=== PATIENT | female | born 1935 | race Caucasian/White ===

== ENCOUNTER 2017-07-26 16:49 | Inpatient (IN) | payer MEDICARE, BC ==
[~2017-07-26] VITALS: Ht 162.6 cm; Wt 73.5 kg
[2017-07-26 17:23] VITALS: BP 193/113; PULSE 116; RESP 17; TEMP 99.5; O2SAT 97
[2017-07-26] MEDS ORDERED: DILT120T PO (18:15)
[2017-07-26] MEDS ORDERED: OCUVTAB4 PO (18:15)
[2017-07-26] MEDS ORDERED: LEVO88TA2 PO (18:15)
[2017-07-26] MEDS ORDERED: APIX5TAB PO (18:15)
[2017-07-26] MEDS ORDERED: FURO20TA PO (18:15)
[2017-07-26 18:20] VITALS: BP 190/97; PULSE 125; RESP 32; O2SAT 88
[2017-07-26] MEDS ORDERED: SODIUM CHLORIDE 0.9% FLUSH 10 ML FLUSH IVF PRN (18:30)
--- NOTE | 2017-07-26 18:38 | PD ---
HPI Chief Complaint: Respiratory Symptoms Time Seen by Provider: 18:28 Travel History International Travel<30 days: No Contact w/Intl Traveler<30days: No Traveled to known affect area: No History of Present Illness HPI 81-year-old female patient with history of hypertension, aortic valve replacement currently on blood thinners, Ulisses boyd, recent history of [employer] cancer status post hysterectomy in September, had lost her a few months ago, had a pneumonia 3 weeks ago and then today started having coughing, dyspnea on exertion according to her son. She has not been feeling well. She denies any chest pains, was nauseous today but denies any vomiting, diarrhea, or other issues. Modifying Factors: None Associated Signs & Symptoms: Coughing, dyspnea on exertion, not feeling well, nausea Risk Factors: Ulisses boyd, cardiac history PFSH Past Medical History Atrial Fibrillation: Yes Heart Rhythm Problems: Yes Cancer: Yes (GYNE CA) Congestive Heart Failure: Yes Diminished Hearing: No Immunizations Current: No Thyroid Disease: Yes Influenza Vaccination: No ?: Not Past Surgical History Cardiac Surgery: Yes (VALVE REPLACEMENT ) Gynecologic Surgery: Yes (HYSTERECTOMY ) Hysterectomy: Yes Social History Alcohol Use: No Tobacco Use: No (QUIT LONG TIME AGO ) Substance Use: No Allergies-Medications (Allergen,Severity, Reaction): Coded Allergies: Sulfa (Sulfonamide Antibiotics) (Verified Allergy, Intermediate, itchy, ) Penicillins (Verified Allergy, Unknown, 07/26/17) Reported Meds & Prescriptions Reported Meds & Active Scripts Active Reported Levothyroxine (Levothyroxine Sodium) 88 Mcg Tab 88 Mcg PO DAILY Furosemide 20 Mg Tab 20 Mg PO DAILY Preservision Areds (Multiple Vitamins W/ Minerals) 1 Tab 1 Tab PO DAILY Eliquis (Apixaban) 5 Mg Tab 5 Mg PO DAILY Diltiazem (Diltiazem HCl) 120 Mg Tab 120 Mg PO DAILY Review of Systems Except as stated in HPI: all other systems reviewed are Neg Physical Exam Narrative GENERAL: Well-developed elderly white female patient currently in mild respiratory distress. Awake and oriented 3. SKIN: Focused skin assessment warm/dry. HEAD: Atraumatic. Normocephalic. EYES: Pupils equal and round. No scleral icterus. No injection or drainage. ENT: No nasal bleeding or discharge. Mucous membranes pink and moist. NECK: Trachea midline. No JVD. CARDIOVASCULAR: Fast and irregularly irregular. RESPIRATORY: No accessory muscle use. Decreased breath sounds at the bases bilaterally. Breath sounds equal bilaterally. GASTROINTESTINAL: Abdomen soft, non-tender, nondistended. Hepatic and splenic margins not palpable. MUSCULOSKELETAL: No obvious deformities. No clubbing. No cyanosis. No edema. NEUROLOGICAL: Awake and alert. No obvious cranial nerve deficits. Motor grossly within normal limits. Normal speech. PSYCHIATRIC: Appropriate mood and affect; insight and judgment normal. Data Data Last Documented VS Vital Signs Date Time Temp Pulse Resp B/P (MAP) Pulse Ox O2 Delivery O2 Flow Rate FiO2 07/26/17 18:20 125 32 190/97 (128) 88 Room Air 07/26/17 18:20 2.00 07/26/17 17:23 99.5 Orders Orders Complete Blood Count With Diff (07/26/17 18:28) Comprehensive Metabolic Panel (07/26/17 18:28) B-Type Natriuretic Peptide (07/26/17 18:28) Ckmb (Isoenzyme) Profile (07/26/17 18:) Troponin I (07/26/17 18:28) Blood Culture (07/26/17 18:28) Iv Access Insert/Monitor (07/26/17 18:28) Electrocardiogram (07/26/17 18:28) Ecg Monitoring (07/26/17 18:) Oximetry (07/26/17 18:) Oxygen Administration (07/26/17 18:28) Chest, Single Ap (07/26/17 18:28) Sodium Chloride 0.9% Flush (Ns Flush) (07/26/17 18:30) Thyroid Stimulating Hormone (07/26/17 18:29) Diltiazem Inj (Cardizem Inj) (07/26/17 19:15) Sodium Chloride 0.9% Flush (Ns Flush) (07/26/17 19:15) MDM Medical Decision Making Medical Screen Exam Complete: Yes Emergency Medical Condition: Yes Medical Record Reviewed: Yes Interpretation(s) EKG shows A. fib with rapid ventricular response at 116 bpm. No signs of acute ST elevations or depressions. Differential Diagnosis Dyspnea on exertion, coughing, nausea: Dysrhythmias versus pneumonia versus CHF versus COPD exacerbation Narrative Course Patient was given Cardizem in the ER for A. fib with RVR. Lab work was initiated in the ER. Chest x-ray ordered for further evaluation. Physician Communication Physician Communication Case is signed out to Dr. Owens at 7 PM pending workup. Disposition based on workup. Diagnosis Primary Impression: Shortness of breath Additional Impression: Atrial fibrillation with RVR Admitting Information Admitting Physician Requests: Admit Renetta Vazquez MD Jul 26, 2017 18:38
--- NOTE | 2017-07-26 19:11 | RADRPT ---
EXAM DATE/TIME: 07/26/2017 18:44 [facility] COMPARISON: No previous studies available for comparison. INDICATIONS : Short of breath. MEDICAL HISTORY : None. SURGICAL HISTORY : None. ENCOUNTER: Initial ACUITY: 1 day PAIN SCORE: 0/10 LOCATION: Bilateral chest FINDINGS: A single view of the chest demonstrates the lungs to be symmetrically aerated without evidence of mas s, infiltrate or effusion. The cardiomediastinal contours are unremarkable. Osseous structures are intact. Patient has had previous median sternotomy. CONCLUSION: No evidence of acute cardiopulmonary disease. Bryant Steele MD on July 26, 2017 at 19:09 Board Certified Radiologist. This report was verified electronically.
[2017-07-26] MEDS ORDERED: DILTIAZEM HCL 25 MG/5 ML VIAL IV PUSH ONE (19:15)
[2017-07-26] MEDS ORDERED: SODIUM CHLORIDE 0.9% FLUSH 10 ML FLUSH IV FLUSH PRN (19:15)
[2017-07-26] MEDS ORDERED: DILTIAZEM HCL 50 MG/10 ML VIAL IV PUSH ONE (19:45)
[2017-07-26 19:51] LABS: AUTOMATED NEUTROPHIL # 9.2 TH/MM3 (1.8-7.7); BASOPHIL # 0.1 TH/MM3 (0-0.2); BASOPHIL % 0.6 % (0.0-2.0); EOSINOPHIL # 0.1 TH/MM3 (0-0.4); EOSINOPHIL % 0.5 % (0.0-4.0); HEMATOCRIT 43.7 % (35.0-46.0); HEMOGLOBIN 14.6 GM/DL (11.6-15.3); LYMPH % 11.1 % (9.0-44.0); LYMPHOCYTE # 1.3 TH/MM3 (1.0-4.8); MEAN CORPUSCULAR HEMOGLOBIN 31.2 PG (27.0-34.0); MEAN CORPUSCULAR HGB CONC 33.5 % (32.0-36.0); MEAN PLATELET VOLUME 7.8 FL (7.0-11.0); MONO % 6.1 % (0.0-8.0); MONOCYTE # 0.7 TH/MM3 (0-0.9); NEUT % 81.7 % (16.0-70.0); PLATELET COUNT 178 TH/MM3 (150-450); RED BLOOD COUNT 4.69 MIL/MM3 (4.00-5.30); RED CELL DISTRIBUTION WIDTH 14.3 % (11.6-17.2); WHITE BLOOD COUNT 11.3 TH/MM3 (4.0-11.0)
[2017-07-26] MEDS ORDERED: RESP: IPRATROPIUM 0.5 MG/2.5 ML NEB NEB ONE (20:00)
[2017-07-26] MEDS ORDERED: guaiFENesin/CODEINE SYRUP 200 MG/20 MG/10 ML CUP PO ONE (20:00)
[2017-07-26 20:23] LABS: AST (GOT) 26 U/L (15-37); BICARBONATE 29.1 MEQ/L (21.0-32.0); BLOOD UREA NITROGEN 18 MG/DL (7-18); CALCIUM 9.3 MG/DL (8.5-10.1); CHLORIDE 101 MEQ/L (98-107); CREATININE 0.96 MG/DL (0.50-1.00); GLOMERULAR FILTRATION RATE 56 ML/MIN (>89); GLUCOSE,RANDOM 97 MG/DL (74-106); SODIUM (NA) 137 MEQ/L (136-145)
[2017-07-26 20:24] LABS: ALT (GPT) 36 U/L (10-53)
[2017-07-26] MEDS: DILTIAZEM INJ 125 MG in SODIUM CHLORIDE 0.9% INJ 100 ML IV PRN (20:28)
[2017-07-26 20:34] LABS: ALKALINE PHOSPHATASE 91 U/L (45-117); TOTAL BILIRUBIN ADULT 0.9 MG/DL (0.2-1.0); TOTAL PROTEIN 8.2 GM/DL (6.4-8.2); TROPONIN I LESS THAN 0.02 NG/ML (0.02-0.05)
[2017-07-26 21:25] VITALS: BP 125/62; PULSE 113; RESP 20; O2SAT 97
[2017-07-26 22:07] VITALS: BP 126/67; PULSE 109; RESP 22; O2SAT 96
[2017-07-26 23:28] VITALS: BP 136/63; PULSE 93; RESP 18; O2SAT 96
[2017-07-27] VITALS (19 sets, daily range): BP systolic 94–140; BP diastolic 54–83; PULSE 13–111; RESP 16–20; TEMP 98.3–99; O2SAT 92–98
[2017-07-27] MEDS ORDERED: ONDANSETRON HCL 4 MG/2 ML VIAL IVP PRN (02:30)
[2017-07-27] MEDS ORDERED: NALOXONE HCL 0.4 MG/ML AMP IV PUSH PRN (02:30)
[2017-07-27] MEDS: RESP: IPRATROPIUM 0.5 MG/2.5 ML NEB NEB SCH ×4 (02:58→20:09)
--- NOTE | 2017-07-27 04:20 | HHI.HP ---
HPI Service [facility] Primary Care Physician Natalie Marshall MD Admission Diagnosis afib RVR Diagnoses: Travel History International Travel<30 Days: No Contact w/Intl Traveler <30 Da: No Traveled to Known Affected Are: No History of Present Illness 81-year-old female with a past medical history significant for atrial fibrillation (anticoagulated on Eliquis) and hypothyroidism sense to the emergency department for evaluation of cough. The patient reports that the cough started last night, is nonproductive and is preventing her from sleeping. She endorses an associated chest pain that is worse with the cough. She denies any fevers but endorses associated chills. No shortness of breath. No nausea/vomiting/diarrhea. On arrival to the emergency department the patient was found to be in atrial fibrillation with rapid ventricular response. She states this has occurred in the past. Review of Systems Except as stated in HPI: all other systems reviewed are Neg Past Family Social History Past Medical History Atrial fibrillation (anticoagulated on Eliquis) Hypothyroidism Unspecified gynecologic cancer Past Surgical History Hysterectomy Partial thyroidectomy Aortic valve replacement Tonsillectomy Reported Medications Reported Meds & Active Scripts Active Reported Levothyroxine (Levothyroxine Sodium) 88 Mcg Tab 88 Mcg PO DAILY Furosemide 20 Mg Tab 20 Mg PO DAILY Preservision Areds (Multiple Vitamins W/ Minerals) 1 Tab 1 Tab PO DAILY Eliquis (Apixaban) 5 Mg Tab 5 Mg PO DAILY Diltiazem (Diltiazem HCl) 120 Mg Tab 120 Mg PO DAILY Allergies: Coded Allergies: Sulfa (Sulfonamide Antibiotics) (Verified Allergy, Intermediate, itchy, ) Penicillins (Verified Allergy, Unknown, 07/26/17) Family History Negative for CAD/DM Social History Denies alcohol, tobacco and illicit drugs Physical Exam Vital Signs Vital Signs Date Time Temp Pulse Resp B/P (MAP) Pulse Ox O2 Delivery O2 Flow Rate FiO2 07/27/17 03:00 83 18 116/83 (94) 96 Nasal Cannula 2.00 07/27/17 01:00 90 18 140/66 (90) 96 Nasal Cannula 2.00 07/26/17 23:28 93 18 136/63 (87) 96 Nasal Cannula 2.00 07/26/17 22:07 109 22 126/67 (86) 96 2.00 07/26/17 21:25 113 20 125/62 (83) 97 2.00 07/26/17 20:46 Nasal Cannula 2.00 07/26/17 20:28 110 149/68 07/26/17 18:20 125 32 190/97 (128) 88 Room Air 07/26/17 18:20 88 Nasal Cannula 2.00 07/26/17 18:20 95 Nasal Cannula 2.00 07/26/17 17:23 99.5 116 17 193/113 (139) 97 Physical Exam GENERAL: female sitting up in bed SKIN: No rashes, ecchymoses or lesions. Cool and dry. HEAD: Atraumatic. Normocephalic. No temporal or scalp tenderness. EYES: Pupils equal round and reactive. Extraocular motions intact. No scleral icterus. No injection or drainage. ENT: Nose without bleeding, purulent drainage or septal hematoma. Throat without erythema, tonsillar hypertrophy or exudate. Uvula midline. Airway patent. NECK: Trachea midline. No JVD or lymphadenopathy. Supple, nontender, no meningeal signs. CARDIOVASCULAR: Irregularly irregular rhythm without murmurs/rubs/gallops RESPIRATORY: Expiratory wheezes, left greater than right. GASTROINTESTINAL: Abdomen soft, non-tender, nondistended. No hepato-splenomegaly , or palpable masses. No guarding. MUSCULOSKELETAL: Extremities without clubbing, cyanosis, or edema. No joint tenderness, effusion, or edema noted. No calf tenderness. NEUROLOGICAL: Awake and alert. Cranial nerves II through XII intact. Motor and sensory grossly within normal limits. Normal speech. Laboratory Laboratory Tests Test 07/26/17 18:20 White Blood Count 11.3 Red Blood Count 4.69 Hemoglobin 14.6 Hematocrit 43.7 Mean Corpuscular Volume 93.0 Mean Corpuscular Hemoglobin 31.2 Mean Corpuscular Hemoglobin Concent 33.5 Red Cell Distribution Width 14.3 Platelet Count 178 Mean Platelet Volume 7.8 Neutrophils (%) (Auto) 81.7 Lymphocytes (%) (Auto) 11.1 Monocytes (%) (Auto) 6.1 Eosinophils (%) (Auto) 0.5 Basophils (%) (Auto) 0.6 Neutrophils # (Auto) 9.2 Lymphocytes # (Auto) 1.3 Monocytes # (Auto) 0.7 Eosinophils # (Auto) 0.1 Basophils # (Auto) 0.1 CBC Comment DIFF FINAL Differential Comment Blood Urea Nitrogen 18 Creatinine 0.96 Random Glucose 97 Total Protein 8.2 Albumin 4.0 Calcium Level 9.3 Alkaline Phosphatase 91 Aspartate Amino Transf (AST/SGOT) 26 Alanine Aminotransferase (ALT/SGPT) 36 Total Bilirubin 0.9 Sodium Level 137 Potassium Level 3.7 Chloride Level 101 Carbon Dioxide Level 29.1 Anion Gap 7 Estimat Glomerular Filtration Rate 56 Total Creatine Kinase 69 Troponin I LESS THAN 0.02 B-Type Natriuretic Peptide 111 Thyroid Stimulating Hormone 3rd Gen 1.110 Date/Time Source Procedure Growth Status 07/26/17 18:35 Blood Peripheral Aerobic Blood Culture Pending Received 07/26/17 18:35 Blood Peripheral Anaerobic Blood Culture Pending Received Result Diagram: 07/26/17181907/26/170 Caprini VTE Risk Assessment Caprini VTE Risk Assessment: Mod/High Risk (score >= 2) Caprini Risk Assessment Model Point Value = 1 Point Value = 2 Point Value = 3 Point Value = 5 Age 41-60 Minor surgery BMI > 25 kg/m2 Swollen legs Varicose veins or History of unexplained or recurrent spontaneous Oral contraceptives or hormone replacement Sepsis (< 1 month) Serious lung disease, including pneumonia (< 1 month) Abnormal pulmonary function Acute myocardial infarction Congestive heart failure (< 1 month) History of inflammatory bowel disease Medical patient at bed rest Age 61-74 Arthroscopic surgery Major open surgery (> 45 min) Laparoscopic surgery (> 45 min) Malignancy Confined to bed (> 72 hours) Immobilizing plaster cast Central venous access Age >= 75 History of VTE Family history of VTE Factor V Leiden Prothrombin [id number] Lupus anticoagulant Anticardiolipin antibodies Elevated serum homocysteine Heparin-induced thrombocytopenia Other congenital or acquired thrombophilia Stroke (< 1 month) Elective arthroplasty Hip, pelvis, or leg fracture Acute spinal cord injury (< 1 month) Prophylaxis Regimen Total Risk Factor Score Risk Level Prophylaxis Regimen 0-1 Low Early ambulation 2 Moderate Order ONE of the following: *Sequential Compression Device (SCD) *Heparin 5000 units SQ BID 3-4 Higher Order ONE of the following medications: *Heparin 5000 units SQ TID *Enoxaparin/Lovenox 40 mg SQ daily (WT < 150 kg, CrCl > 30 mL/min) *Enoxaparin/Lovenox 30 mg SQ daily (WT < 150 kg, CrCl > 10-29 mL/min) *Enoxaparin/Lovenox 30 mg SQ BID (WT < 150 kg, CrCl > 30 mL/min) AND/OR *Sequential Compression Device (SCD) 5 or more Highest Order ONE of the following medications: *Heparin 5000 units SQ TID (Preferred with Epidurals) *Enoxaparin/Lovenox 40 mg SQ daily (WT < 150 kg, CrCl > 30 mL/min) *Enoxaparin/Lovenox 30 mg SQ daily (WT < 150 kg, CrCl > 10-29 mL/min) *Enoxaparin/Lovenox 30 mg SQ BID (WT < 150 kg, CrCl > 30 mL/min) AND *Sequential Compression Device (SCD) Assessment and Plan Assessment and Plan Assessment/plan: 1. Atrial fibrillation with rapid ventricular response EKG significant for A. fib with RVR, pulse 116, without ST segment elevations or depressions, personally reviewed Diltiazem drip, wean as tolerated Continue Eliquis and by mouth diltiazem 2. Cough/wheeze/mild leukocytosis DuoNeb's Flu pending Chest x-ray negative for acute process, personally reviewed 3. Hypothyroidism Continue home Synthroid FEN Heart healthy diet Electrolytes: Monitor and replete when necessary Eliquis Physician Certification 2 Midnight Certification Type: Admission for Inpatient Services Order for Inpatient Services The services are ordered in accordance with Medicare regulations or non- Medicare payer requirements, as applicable. In the case of services not specified as inpatient-only, they are appropriately provided as inpatient services in accordance with the 2-midnight benchmark. Estimated LOS (days): 2 2 days is the estimated time the patient will need to remain in the hospital, assuming treatment plan goals are met and no additional complications. Post-Hospital Plan: Not yet determined Danielle Alonzo MD Jul 27, 2017 04:20
[2017-07-27] MEDS: DILTIAZEM INJ 125 MG in SODIUM CHLORIDE 0.9% INJ 100 ML IV PRN (04:40)
[2017-07-27] MEDS: FUROSEMIDE 20 MG TAB PO SCH (09:32)
[2017-07-27] MEDS: DILTIAZEM-CD 120 MG CAP ER PO SCH (09:32)
[2017-07-27] MEDS: APIXABAN 5 MG TABLET PO SCH (09:32)
[2017-07-27] MEDS: LEVOTHYROXINE SODIUM 88 MCG TAB PO SCH (09:32)
[2017-07-27] MEDS: guaiFENesin E.R. 600 MG TAB PO SCH ×2 (09:33→21:23)
[2017-07-27] MEDS: guaiFENesin/CODEINE SYRUP 200 MG/20 MG/10 ML CUP PO PRN ×2 (09:33→22:44)
--- NOTE | 2017-07-27 14:36 | EKG ---
Date Performed: 07/26/2017 Time Performed: 18:18:51 PTAGE: 81 years EKG: ATRIAL FIBRILLATION WITH RAPID VENTRICULAR RESPONSE ST DEVIATION AND MODERATE T-WAVE ABNORM ALITY, CONSIDER INFERIOR ISCHEMIA ABNORMAL ECG NO PREVIOUS TRACING Clinical correlation is recommended. DOCTOR: Dm Beaver Interpretating Date/Time 07/27/2017 14:35:12
--- NOTE | 2017-07-27 17:31 | HHI.PR ---
Subjective Remarks This is a pleasant 81 y/o female admitted today with Atrial Fibrillation anticoagulated on Eliquis, has Hypothyroidism, came to ER with cough, found to be in atrial fibrillation with rapid ventricular response. Was admitted today and discussed with nurse, patient stable asked for informatics nurse specialist. no other changes. asked for Echocardiogram, Urinalysis, complete laboratory, TSH, free T4, Lipid profile, Hemoglobin A1C. tomorrow will be followed by another hospitalist. Objective Vital Signs Date Time Temp Pulse Resp B/P (MAP) Pulse Ox O2 Delivery O2 Flow Rate FiO2 07/27/17 17:28 84 07/27/17 16:03 103 07/27/17 15:07 84 07/27/17 15:07 99.0 103 20 126/65 (85) 94 07/27/17 12:00 98.3 79 16 94/58 (70) 96 07/27/17 12:00 79 07/27/17 10:50 98 Nasal Cannula 3.00 07/27/17 10:22 81 17 138/63 (88) 94 07/27/17 08:00 73 07/27/17 08:00 98.3 80 18 121/58 (79) 92 07/27/17 07:27 76 18 104/54 (71) Room Air 07/27/17 05:33 77 16 105/58 (74) 95 2.00 07/27/17 04:40 90 110/72 07/27/17 03:00 83 18 116/83 (94) 96 Nasal Cannula 2.00 07/27/17 01:00 90 18 140/66 (90) 96 Nasal Cannula 2.00 07/26/17 23:28 93 18 136/63 (87) 96 Nasal Cannula 2.00 07/26/17 22:07 109 22 126/67 (86) 96 2.00 07/26/17 21:25 113 20 125/62 (83) 97 2.00 07/26/17 20:46 Nasal Cannula 2.00 07/26/17 20:28 110 149/68 07/26/17 18:20 125 32 190/97 (128) 88 Room Air 07/26/17 18:20 88 Nasal Cannula 2.00 07/26/17 18:20 95 Nasal Cannula 2.00 I/O 07/26/17 07/26/17 07/26/17 07/27/1718 3/16/18 07:00 15:00 23:00 07:00 15:00 23:00 Intake Total 0 ml Output Total 0 ml Balance 0 ml Intake Oral 0 ml Output Urine Total 0 ml Result Diagram: 07/26/17181907/26/171819 Imaging Last Impressions Chest X-Ray 07/26/178 Signed Impressions: Service Date/Time: July 18:44 - CONCLUSION: No evidence of acute cardiopulmonary disease. Bryant Steele MD Procedures None Other Results Laboratory Tests Test 07/26/17 18:20 White Blood Count 11.3 TH/MM3 Red Blood Count 4.69 MIL/MM3 Hemoglobin 14.6 GM/DL Hematocrit 43.7 % Mean Corpuscular Volume 93.0 FL Mean Corpuscular Hemoglobin 31.2 PG Mean Corpuscular Hemoglobin Concent 33.5 % Red Cell Distribution Width 14.3 % Platelet Count 178 TH/MM3 Mean Platelet Volume 7.8 FL Neutrophils (%) (Auto) 81.7 % Lymphocytes (%) (Auto) 11.1 % Monocytes (%) (Auto) 6.1 % Eosinophils (%) (Auto) 0.5 % Basophils (%) (Auto) 0.6 % Neutrophils # (Auto) 9.2 TH/MM3 Lymphocytes # (Auto) 1.3 TH/MM3 Monocytes # (Auto) 0.7 TH/MM3 Eosinophils # (Auto) 0.1 TH/MM3 Basophils # (Auto) 0.1 TH/MM3 CBC Comment DIFF FINAL Differential Comment Blood Urea Nitrogen 18 MG/DL Creatinine 0.96 MG/DL Random Glucose 97 MG/DL Total Protein 8.2 GM/DL Albumin 4.0 GM/DL Calcium Level 9.3 MG/DL Alkaline Phosphatase 91 U/L Aspartate Amino Transf (AST/SGOT) 26 U/L Alanine Aminotransferase (ALT/SGPT) 36 U/L Total Bilirubin 0.9 MG/DL Sodium Level 137 MEQ/L Potassium Level 3.7 MEQ/L Chloride Level 101 MEQ/L Carbon Dioxide Level 29.1 MEQ/L Anion Gap 7 MEQ/L Estimat Glomerular Filtration Rate 56 ML/MIN Total Creatine Kinase 69 U/L Troponin I LESS THAN 0.02 NG/ML B-Type Natriuretic Peptide 111 PG/ML Thyroid Stimulating Hormone 3rd Gen 1.110 uIU/ML Objective Remarks GENERAL: female sitting up in bed SKIN: No rashes, ecchymoses or lesions. Cool and dry. HEAD: Atraumatic. Normocephalic. No temporal or scalp tenderness. EYES: Pupils equal round and reactive. Extraocular motions intact. No scleral icterus. No injection or drainage. ENT: Nose without bleeding, purulent drainage or septal hematoma. Throat without erythema, tonsillar hypertrophy or exudate. Uvula midline. Airway patent. NECK: Trachea midline. No JVD or lymphadenopathy. Supple, nontender, no meningeal signs. CARDIOVASCULAR: Irregularly irregular rhythm without murmurs/rubs/gallops RESPIRATORY: Expiratory wheezes, left greater than right. GASTROINTESTINAL: Abdomen soft, non-tender, nondistended. No hepato-splenomegaly , or palpable masses. No guarding. MUSCULOSKELETAL: Extremities without clubbing, cyanosis, or edema. No joint tenderness, effusion, or edema noted. No calf tenderness. NEUROLOGICAL: Awake and alert. Cranial nerves II through XII intact. Motor and sensory grossly within normal limits. Normal speech. Medications and IVs Current Medications Medications (Trade) Dose Ordered Sig/Nida Route Start Time Stop Time Status Last Admin (NS Flush) 2 ml UNSCH PRN IVF 07/26/17 18:30 07/26/17 19:38 (NS Flush) 2 ml UNSCH PRN IV FLUSH 07/26/17 19:15 Diltiazem HCl 125 mg/Sodium Chloride 125 ml @ 5 mls/hr TITRATE PRN IV 07/26/17 20:00 07/27/17 04:40 (Zofran Inj) 4 mg Q6H PRN IVP 07/27/17 02:30 (Narcan Inj) 0.4 mg UNSCH PRN IV PUSH 07/27/17 02:30 (Atrovent Neb) 0.5 mg Q6HR NEB NEB 07/27/17 04:00 07/27/17 16:19 (Eliquis) 5 mg DAILY PO 07/27/17 09:00 07/27/17 09:32 (Lasix) 20 mg DAILY PO 07/27/17 09:00 07/27/17 09:32 (Synthroid) 88 mcg DAILY@0600 PO 07/27/17 09:00 07/27/17 09:32 (Cardizem Cd) 120 mg DAILY PO 07/27/17 09:00 07/27/17 09:32 (Mucinex Er) 600 mg BID PO 07/27/17 09:00 07/27/17 09:33 (Robitussin Ac 200-20 Mg/10 ml Liq) 10 ml Q4H PRN PO 07/27/17 03:00 07/27/17 09:33 A/P Assessment and Plan 1. Atrial fibrillation with rapid ventricular response EKG significant for A. fib with RVR, pulse 116, without ST segment elevations or depressions, continue Diltiazem IV consult Cardiology, get Urinalysis, TSH, Free T4, Lipid profile, hemoglobin A1C , Echocardiogram, Eliquis. Cardizem by mouth. 2. Cough/wheeze/mild leukocytosis DuoNeb's Flu pending Chest x-ray negative for acute process 3. Hypothyroidism Continue home Synthroid FEN Heart healthy diet Electrolytes: Monitor and replete when necessary Eliquis Discharge Planning Admitted today awaiting for informatics nurse specialist consult. Herbert Carranza MD Jul 27, 2017 17:31
[2017-07-28] VITALS (29 sets, daily range): BP systolic 97–141; BP diastolic 54–71; PULSE 88–118; RESP 18; TEMP 98.1–98.9; O2SAT 92–97
[2017-07-28] MEDS: RESP: IPRATROPIUM 0.5 MG/2.5 ML NEB NEB SCH ×4 (03:15→21:22)
[2017-07-28 04:15] LABS: BACTERIA, URINE MANY /hpf; BILIRUBIN, URINE NEG (NEG); BLOOD, URINE MOD (NEG); GLUCOSE,URINE NEG (NEG); KETONE, URINE NEG (NEG); MUCUS URINE MOD /lpf (OCC); NITRITE,URINE NEG (NEG); SQUAMOUS EPITHELIAL CELL URINE 7 /hpf (0-5); TRANSITIONAL EPI CELLS, URINE 2 /hpf; URINE COLOR YELLOW (YELLW/STRAW); URINE LEUKOCYTE ESTERASE LARGE (NEG); WHITE BLOOD CELL CLUMPS OCC
[2017-07-28] MEDS: LEVOTHYROXINE SODIUM 88 MCG TAB PO SCH (06:38)
[2017-07-28 07:13] LABS: AUTOMATED NEUTROPHIL # 8.7 TH/MM3 (1.8-7.7); BASOPHIL % 0.5 % (0.0-2.0); EOSINOPHIL # 0.1 TH/MM3 (0-0.4); EOSINOPHIL % 0.9 % (0.0-4.0); HEMATOCRIT 32.7 % (35.0-46.0); HEMOGLOBIN 11.3 GM/DL (11.6-15.3); LYMPH % 6.3 % (9.0-44.0); LYMPHOCYTE # 0.6 TH/MM3 (1.0-4.8); MEAN CELL VOLUME 92.2 FL (80.0-100.0); MEAN CORPUSCULAR HEMOGLOBIN 31.7 PG (27.0-34.0); MEAN CORPUSCULAR HGB CONC 34.4 % (32.0-36.0); MEAN PLATELET VOLUME 7.6 FL (7.0-11.0); MONO % 7.9 % (0.0-8.0); MONOCYTE # 0.8 TH/MM3 (0-0.9); NEUT % 84.4 % (16.0-70.0); PLATELET COUNT 153 TH/MM3 (150-450); RED BLOOD COUNT 3.55 MIL/MM3 (4.00-5.30); RED CELL DISTRIBUTION WIDTH 14.3 % (11.6-17.2); WHITE BLOOD COUNT 10.3 TH/MM3 (4.0-11.0)
[2017-07-28 08:20] LABS: BICARBONATE 28.7 MEQ/L (21.0-32.0); CALCIUM 8.3 MG/DL (8.5-10.1); CHOLESTEROL/ HDL RATIO 2.1 RATIO; CREATININE 0.84 MG/DL (0.50-1.00); FOLATE 11.1 NG/ML (3.1-17.5); HDL CHOLESTEROL 83.3 MG/DL (40.0-60.0)
[2017-07-28] MEDS: APIXABAN 5 MG TABLET PO SCH (08:53)
[2017-07-28] MEDS: guaiFENesin E.R. 600 MG TAB PO SCH ×2 (08:53→21:18)
[2017-07-28] MEDS: FUROSEMIDE 20 MG TAB PO SCH (08:53)
[2017-07-28] MEDS: DILTIAZEM-CD 120 MG CAP ER PO SCH (08:53)
[2017-07-28] MEDS: guaiFENesin/CODEINE SYRUP 200 MG/20 MG/10 ML CUP PO PRN ×2 (08:53→21:18)
[2017-07-28] MEDS ORDERED: APIX5TAB PO (08:57)
--- NOTE | 2017-07-28 15:09 | HHI.PR ---
Subjective Remarks Follow-up atrial fibrillation with RVR 07/28/17-patient seen and examined, currently rate controlled, denies any chest or shortness of breath. UA abnormal Objective Vitals Vital Signs Date Time Temp Pulse Resp B/P (MAP) Pulse Ox O2 Delivery O2 Flow Rate FiO2 07/28/17 14:00 92 07/28/17 13:00 96 07/28/17 12:03 103 07/28/17 11:06 98.1 101 18 97/54 (68) 95 07/28/17 11:00 94 07/28/17 10:00 102 07/28/17 09:00 116 07/28/17 08:35 92 21 07/28/17 08:00 96 07/28/17 07:53 98.3 98 18 105/60 (75) 96 07/28/17 07:00 94 07/28/17 06:00 102 07/28/17 05:00 100 07/28/17 04:00 98.6 98 18 122/71 (88) 95 07/28/17 04:00 98 07/28/17 03:00 96 07/28/17 02:00 92 07/28/17 01:00 96 07/28/17 00:00 94 07/28/17 00:00 98.9 98 18 136/68 (90) 96 07/27/17 23:00 96 07/27/17 22:00 100 07/27/17 21:26 98.9 111 18 128/68 (88) 95 07/27/17 21:00 102 07/27/17 20:09 95 Nasal Cannula 3.00 07/27/17 20:00 96 07/27/17 19:00 95 07/27/17 18:11 83 07/27/17 17:28 84 07/27/17 16:03 103 07/27/17 15:07 84 07/27/17 15:07 99.0 103 20 126/65 (85) 94 I/O 07/27/17 07/27/17 07/27/17 07/28/17 07/28/17 07/28/17 07:00 15:00 23:00 07:00 15:00 23:00 Intake Total 0 ml 240 ml 240 ml Output Total 0 ml 500 ml 300 ml Balance 0 ml -260 ml -60 ml Intake Oral 0 ml 240 ml 240 ml Output Urine Total 0 ml 500 ml 300 ml # Bowel Movements 0 0 Result Diagram: 07/28/17 0650 07/28/17 0650 Imaging Last Impressions Chest X-Ray 07/26/17 1828 Signed Impressions: Service Date/Time: July 18:44 - CONCLUSION: No evidence of acute cardiopulmonary disease. Bryant Steele MD Objective Remarks GENERAL: NAD SKIN: Warm and dry. HEAD: Normocephalic. EYES: No scleral icterus. No injection or drainage. NECK: Supple, trachea midline. No JVD or lymphadenopathy. CARDIOVASCULAR: Irregular Regular rate and rhythm without murmurs, gallops, or rubs. RESPIRATORY: Breath sounds equal bilaterally. No accessory muscle use. GASTROINTESTINAL: Abdomen soft, non-tender, nondistended. MUSCULOSKELETAL: No cyanosis, or edema. BACK: Nontender without obvious deformity. No CVA tenderness. A/P Problem List: (1) Atrial fibrillation with RVR ICD Code: I48.91 - Unspecified atrial fibrillation Status: Acute Assessment and Plan 81 year-old female with 1. Atrial fibrillation with RVR Currently on Cardizem drip pending cardiology 2-D echo pending Continue Eliquis 2. Cough/wheeze/mild leukocytosis-resolved DuoNeb's Flu negative Chest x-ray negative for acute process 3. Hypothyroidism Continue home Synthroid 4. Abnormal UA Start Cipro 5 mg by mouth twice pending urine culture Raul Jonas MD Jul 28, 2017 15:09
[2017-07-28] MEDS: CIPROFLOXACIN 500 MG TAB PO SCH (21:18)
[2017-07-29] VITALS (20 sets, daily range): BP systolic 94–124; BP diastolic 53–66; PULSE 82–104; RESP 18–20; TEMP 97.7–98.7; O2SAT 92–98
[2017-07-29] MEDS: RESP: IPRATROPIUM 0.5 MG/2.5 ML NEB NEB SCH ×2 (03:40→09:51)
[2017-07-29] MEDS: LEVOTHYROXINE SODIUM 88 MCG TAB PO SCH (05:51)
[2017-07-29] MEDS: CIPROFLOXACIN 500 MG TAB PO SCH (08:44)
[2017-07-29] MEDS: guaiFENesin/CODEINE SYRUP 200 MG/20 MG/10 ML CUP PO PRN (08:44)
[2017-07-29] MEDS: FUROSEMIDE 20 MG TAB PO SCH (08:44)
[2017-07-29] MEDS: guaiFENesin E.R. 600 MG TAB PO SCH (08:44)
--- NOTE | 2017-07-29 08:48 | MB ---
cc: Dayne Caballero MD, Humayun A MD DATE OF CONSULT: 07/29/2017 REASON FOR CONSULTATION: Atrial fibrillation. HISTORY OF PRESENT ILLNESS: Ms. Mendieta is a 81-year-old white female with a history of atrial fibrillation, and aortic valve replacement in 2011, who presented to the emergency department for evaluation of cough. The patient denies any fevers, chills or night sweats. She has mildly productive cough. She denies any palpitations, lightheadedness, or syncope. She was found to be in atrial fibrillation with rapid ventricular response at times. She had been on intravenous diltiazem, but is now on oral diltiazem and anticoagulation therapy with Eliquis. She recently was established with Dr. Driscoll as an outpatient. ALLERGIES: SULFA AND PENICILLIN. MEDICATIONS: 1. Eliquis 5 mg p.o. daily. 2. Ciprofloxacin 500 mg q.12 hours. 3. Cardizem-CD 120 mg daily. 4. Furosemide 20 mg daily. 5. Synthroid 88 mcg daily. 6. Mucinex ER 600 mg b.i.d. 7. Atrovent nebulizers q. hours. 8. Robitussin AC q.4 hours p.r.n. 9. Zofran 4 mg p.r.n. PAST MEDICAL HISTORY: As that mentioned above. In addition hypothyroidism, gynecologic cancer. Denies history of hypertension, diabetes, myocardial infarction, and stroke. PAST SURGICAL HISTORY: Hysterectomy, partial thyroidectomy, aortic valve replacement, bioprosthetic valve in 2012 in [place], and tonsillectomy. FAMILY HISTORY: Noncontributory. SOCIAL HISTORY: The patient denies tobacco, alcohol or illicit drug use at this time. REVIEW OF SYSTEMS: Negative except for that mentioned in the HPI. PHYSICAL EXAMINATION: GENERAL: Elderly white female sitting up in bed in no distress at this time. VITAL SIGNS: Blood pressure 111/65 mmHg; heart rate is 85 at rest, but does go up into the 110-120 range with any activity; respiratory rate 18, temperature 98.6, oxygen saturation 97% on 2 liters nasal cannula. HEENT: Head is normocephalic and atraumatic. Pupils equal, round, reactive to light. Sclerae are anicteric. Extraocular movements intact. NECK: Supple. There is no adenopathy. There is no jugular venous distention at 90 degrees. Carotid upstrokes are normal. No bruits. Thyroid exam normal. LUNGS: Clear. HEART: PMI is not displaced. S1, S2 are irregular, otherwise normal. No murmurs, gallops or rubs. ABDOMEN: Benign. EXTREMITIES: No cyanosis, clubbing or edema. NEUROLOGIC: Nonfocal. EKG: EKG from admission shows atrial fibrillation with a rapid ventricular response of 116 beats per minute. LABORATORY DATA: CBC: White count 10.3; hemoglobin 11.3; platelet count 153,000. Chemistries are normal with a potassium of 3.6, BUN 19, creatinine 0.84, AST 26. BNP of 111. CPK of 69 with a troponin I of less than 0.02. TSH 1.11. IMAGING STUDIES: Chest x-ray from the shows no evidence of acute cardiopulmonary disease. IMPRESSION: 1. Persistent atrial fibrillation with rapid ventricular response, improving with diltiazem. 2. Long-term anticoagulation therapy with Eliquis. 3. History of aortic valve replacement -- bioprosthetic. 4. Possible bronchitis, undergoing therapy. RECOMMENDATION: Continue to treat underlying pulmonary issues. I have adjusted the patient's dosing of her Cardizem and Eliquis. From a cardiovascular standpoint, I think she is stable for discharge home and followup with Dr. Driscoll as an outpatient. Thank you for allowing us to participate in the care of this patient. MD DIAZ Nixon/JYOTI , 07:51 AM , 08:46 AM ZA
[2017-07-29] MEDS ORDERED: APIXABAN 5 MG TABLET PO SCH (09:00)
[2017-07-29] MEDS ORDERED: DILTIAZEM-CD 180 MG CAP ER PO SCH (09:00)
[2017-07-29] MEDS ORDERED: CARD180C5 PO (12:43)
[2017-07-29] MEDS ORDERED: CIPR-9 PO (12:43)
[2017-07-29] MEDS ORDERED: APIX5TAB PO (12:43)
--- NOTE | 2017-07-29 12:46 | HHI.PR ---
Subjective Remarks Follow-up atrial fibrillation with RVR 07/28/17-patient seen and examined, currently rate controlled, denies any chest or shortness of breath. UA abnormal 07/29/17-patient seen and examined, stable and no complaint. Looking for discharge home today Objective Vitals Vital Signs Date Time Temp Pulse Resp B/P (MAP) Pulse Ox O2 Delivery O2 Flow Rate FiO2 07/29/17 11:32 98.7 90 18 94/53 (67) 98 07/29/17 11:00 92 07/29/17 10:00 90 07/29/17 09:53 95 Nasal Cannula 2.00 07/29/17 09:00 102 07/29/17 08:00 94 07/29/17 07:39 98.0 93 18 111/58 (75) 95 07/29/17 07:00 85 07/29/17 06:04 83 07/29/17 05:00 82 07/29/17 04:00 98.6 83 18 111/65 (80) 97 07/29/17 04:00 84 07/29/17 03:00 86 07/29/17 02:00 84 07/29/17 01:00 86 07/29/17 00:00 98.6 88 20 124/66 (85) 92 07/29/17 00:00 92 07/28/17 23:00 89 07/28/17 22:00 90 07/28/17 21:22 96 Nasal Cannula 2.00 07/28/17 21:00 88 07/28/17 20:00 98.6 89 18 141/66 (91) 97 07/28/17 20:00 102 07/28/17 19:00 88 07/28/17 18:05 118 07/28/17 17:18 96 07/28/17 16:00 88 07/28/17 15:30 98.7 94 18 116/57 (76) 93 07/28/17 15:00 92 07/28/17 14:00 92 07/28/17 13:00 96 I/O 07/28/17 07/28/17 07/28/17 07/29/17 07/29/17 07/29/17 07:00 15:00 23:00 07:00 15:00 23:00 Intake Total 240 ml 900 ml 480 ml Output Total 300 ml 275 ml 325 ml Balance -60 ml 625 ml 155 ml Intake Oral 240 ml 900 ml 480 ml Output Urine Total 300 ml 275 ml 325 ml Stool Total 0 ml # Bowel Movements 0 0 Result Diagram: 07/28/17 0650 07/28/17 0650 Imaging Last Impressions Chest X-Ray 07/26/17 1828 Signed Impressions: Service Date/Time: July 18:44 - CONCLUSION: No evidence of acute cardiopulmonary disease. Bryant Steele MD Objective Remarks GENERAL: NAD SKIN: Warm and dry. HEAD: Normocephalic. EYES: No scleral icterus. No injection or drainage. NECK: Supple, trachea midline. No JVD or lymphadenopathy. CARDIOVASCULAR: Irregular Regular rate and rhythm without murmurs, gallops, or rubs. RESPIRATORY: Breath sounds equal bilaterally. No accessory muscle use. GASTROINTESTINAL: Abdomen soft, non-tender, nondistended. MUSCULOSKELETAL: No cyanosis, or edema. BACK: Nontender without obvious deformity. No CVA tenderness. Procedures None A/P Problem List: (1) Atrial fibrillation with RVR ICD Code: I48.91 - Unspecified atrial fibrillation Status: Acute Assessment and Plan 81 year-old female with 1. Atrial fibrillation with RVR s/p Cardizem drip and now on Cardizem 180 mg daily 2-D echo pending Continue Eliquis 5 mg twice a day 2. Cough/wheeze/mild leukocytosis-resolved DuoNeb's Flu negative Chest x-ray negative for acute process 3. Hypothyroidism Continue home Synthroid 4. Abnormal UA Continue Cipro 5 mg by mouth twice Raul Jonas MD Jul 29, 2017 12:46
--- NOTE | 2017-07-29 12:48 | HHI.DS ---
Discharge Summary Admission Date Jul 26, 2017 at 23:04 Discharge Date: Jul 29, 2017 Admitting Diagnosis afib RVR (1) Atrial fibrillation with RVR ICD Code: I48.91 - Unspecified atrial fibrillation Status: Acute Procedures None Brief History - From Admission 81-year-old female with a past medical history significant for atrial fibrillation (anticoagulated on Eliquis) and hypothyroidism sense to the emergency department for evaluation of cough. The patient reports that the cough started last night, is nonproductive and is preventing her from sleeping. She endorses an associated chest pain that is worse with the cough. She denies any fevers but endorses associated chills. No shortness of breath. No nausea/vomiting/diarrhea. On arrival to the emergency department the patient was found to be in atrial fibrillation with rapid ventricular response. She states this has occurred in the past. CBC/BMP: 07/28/17 0650 07/28/17 0650 Significant Findings Laboratory Tests Test 07/26/17 18:20 07/28/17 03:42 07/28/17 06:50 White Blood Count 11.3 TH/MM3 (4.0-11.0) Neutrophils (%) (Auto) 81.7 % (16.0-70.0) 84.4 % (16.0-70.0) Neutrophils # (Auto) 9.2 TH/MM3 (1.8-7.7) 8.7 TH/MM3 (1.8-7.7) Estimat Glomerular Filtration Rate 56 ML/MIN (>89) 65 ML/MIN (>89) Troponin I LESS THAN 0.02 NG/ML B-Type Natriuretic Peptide 111 PG/ML (0-100) Urine Turbidity CLOUDY (CLEAR) Urine Protein 30 mg/dL (NEG-TRACE) Urine Occult Blood MOD (NEG) Urine Leukocyte Esterase LARGE (NEG) Urine RBC 42 /hpf (0-3) Urine WBC Clumps OCC (NONE) Urine Bacteria MANY /hpf (NONE) Urine Mucus MOD /lpf (OCC) Red Blood Count 3.55 MIL/MM3 (4.00-5.30) Hemoglobin 11.3 GM/DL (11.6-15.3) Hematocrit 32.7 % (35.0-46.0) Lymphocytes (%) (Auto) 6.3 % (9.0-44.0) Lymphocytes # (Auto) 0.6 TH/MM3 (1.0-4.8) Blood Urea Nitrogen 19 MG/DL (7-18) Random Glucose 112 MG/DL (74-106) Calcium Level 8.3 MG/DL (8.5-10.1) HDL Cholesterol 83.3 MG/DL (40.0-60.0) Imaging Last Impressions Chest X-Ray 07/26/17 6301 Signed Impressions: Service Date/Time: July 18:44 - CONCLUSION: No evidence of acute cardiopulmonary disease. Bryant Steele MD PE at Discharge GENERAL: NAD SKIN: Warm and dry. HEAD: Normocephalic. EYES: No scleral icterus. No injection or drainage. NECK: Supple, trachea midline. No JVD or lymphadenopathy. CARDIOVASCULAR: Irregular Regular rate and rhythm without murmurs, gallops, or rubs. RESPIRATORY: Breath sounds equal bilaterally. No accessory muscle use. GASTROINTESTINAL: Abdomen soft, non-tender, nondistended. MUSCULOSKELETAL: No cyanosis, or edema. BACK: Nontender without obvious deformity. No CVA tenderness. Hospital Course While in the hospital, patient was treated for 1. Atrial fibrillation with RVR s/p Cardizem drip and started on Cardizem which was adjusted accordingly to 180 mg daily I cardiology 2-D echo performed She was also treated with Eliquis 5 mg twice a day 2. Cough/wheeze/mild leukocytosis-resolved DuoNeb's Flu negative Chest x-ray negative for acute process 3. Hypothyroidism she was continued on her home Synthroid 4. Abnormal UA She was started on Cipro 5 mg by mouth twice Pt Condition on Discharge: Good Discharge Disposition: Discharge Home Discharge Time: <= 30 minutes Discharge Instructions DIET: Follow Instructions for: Heart Healthy Diet Activities you can perform: Regular-No Restrictions Follow up Referrals: Cardiology PCP Follow-up - 1 Week New Medications: Albuterol 18 GM Inh (Ventolin Hfa 18 GM Inh) 90 Mcg/Act Aer 2 PUFF INH Q4-6H PRN for SHORTNESS OF BREATH, #1 INHALER 0 Refills Ipratropium HFA 12.9 GM Inh (Atrovent HFA 12.9 GM Inh) 17 Mcg/Actuation Aer 2 PUFF INH Q6HR PRN for SHORTNESS OF BREATH, #1 INHALER 0 Refills Apixaban (Eliquis) 5 Mg Tab 5 MG PO BID for Prevent Blood Clot, #60 TAB Ciprofloxacin (Cipro) 500 Mg Tab 500 MG PO Q12HR for Infection, #10 TAB Diltiazem CD 24 HR (Cardizem CD 24 HR) 180 Mg Caper 180 MG PO DAILY for Regulate Heart Beat, #30 CAP Continued Medications: Apixaban (Eliquis) 5 Mg Tab 5 MG PO BID for Blood Clot Prevention, #60 TAB 0 Refills Furosemide (Furosemide) 20 Mg Tab 20 MG PO DAILY, #30 TAB 0 Refills Levothyroxine (Levothyroxine) 88 Mcg Tab 88 MCG PO DAILY for Thyroid, #30 TAB 0 Refills Multiple Vitamins W/ Minerals (Preservision Areds) 1 Tab 1 TAB PO DAILY for Nutritional Supplement, TAB 0 Refills Discontinued Medications: Apixaban (Eliquis) 5 Mg Tab 5 MG PO DAILY for Blood Clot Prevention, #60 TAB 0 Refills Diltiazem (Diltiazem) 120 Mg Tab 120 MG PO DAILY for Angina, #120 TAB 0 Refills Raul Jonas MD Jul 29, 2017 12:48
[2017-07-29] MEDS ORDERED: VENTAER INH (16:03)
[2017-07-29] MEDS ORDERED: IPRA17I INH (16:03)
--- NOTE | 2017-07-29 16:36 | ECHRPT ---
Indication: A FIB FLUTTER CONCLUSIONS Normal left ventricular size. Wall thickness is normal. The left ventricular systolic function is normal with an estimated ejection fraction in the range of 60-65%. The right atrial size is upper limits of normal. Moderate mitral regurgitation. Mild aortic valve regurgitation. Moderate aortic stenosis. Aortic valve mean gradient is 44 mmHg. There is moderate tricuspid regurgitation. There is estimated moderate pulmonary hypertension present (range 64 mmHg). BP: / HR: Rhythm: MEASUREMENTS (Male / Female) Normal Values Technical Quality:Good 2D ECHO LV Diastolic Diameter PLAX 4.1 cm 4.2 - 5.9 / 3.9 - 5.3 cm LV Systolic Diameter PLAX 2.9 cm IVS Diastolic Thickness 1.0 cm 0.6 - 1.0 / 0.6 - 0.9 cm LVPW Diastolic Thickness 0.7 cm 0.6 - 1.0 / 0.6 - 0.9 cm LV Relative Wall Thickness 0.4 LA Systolic Diameter LX 3.1 cm 3.0 - 4.0 / 2.7 - 3.8 cm DOPPLER AV Peak Velocity 436.3 cm/s AV Peak Gradient 76.1 mmHg AV Mean Gradient 42.5 mmHg AV Velocity Time Integral 88.8 cm LVOT Peak Velocity 109.0 cm/s LVOT Peak Gradient 4.8 mmHg LVOT Velocity Time Integral 18.4 cm MR Peak Velocity 551.0 cm/s MR Peak Gradient 121.4 mmHg TR Peak Velocity 366.0 cm/s TR Peak Gradient 53.6 mmHg Right Atrial Pressure 10.0 mmHg Pulmonary Artery Systolic Pressu 63.6 mmHg Right Ventricular Systolic Press 63.6 mmHg FINDINGS LEFT VENTRICLE Normal left ventricular size. Wall thickness is normal. The left ventricular systolic function is normal with an estimated ejection fraction in the range of 60-65%. RIGHT VENTRICLE Normal right ventricular size and systolic function. LEFT ATRIUM The left atrial size is normal. RIGHT ATRIUM The right atrial size is upper limits of normal. ATRIAL SEPTUM Normal atrial septal thickness without atrial level shunting by limited color doppler interrogation. AORTA The aortic root and proximal ascending aorta are normal in size on limited imaging. MITRAL VALVE Structurally normal mitral valve. No mitral valve stenosis. Moderate mitral regurgitation. AORTIC VALVE Mild aortic valve regurgitation. Aortic valve mean gradient is 44 mmHg. TRICUSPID VALVE There is moderate tricuspid regurgitation. There is estimated moderate pulmonary hypertension present (range 64 mmHg). PULMONARY VALVE The pulmonary valve is not well visualized. VESSELS The inferior vena cava is normal in size. PERICARDIUM No pericardial effusion. Sandee Boone MD, FACC (Electronically Signed) Final Date:29 July 2017 16:35
== END 2017-07-29 16:30 | disposition home or self-care (01) | DRG 310 ==
LOC: NEPE 16:49 → NEDA 23:04 → NEDH 07-27 03:40 → HCPC 07-27 14:11
PROVIDERS: ADMIT Hospitalist; ATTEND Hospitalist
DX: I48.1 Persistent atrial fibrillation (principal); R06.03 Acute respiratory distress; I50.9 Heart failure, unspecified; I11.0 Hypertensive heart disease with heart failure; Z95.3 Presence of xenogenic heart valve; E03.9 Hypothyroidism, unspecified; D72.829 Elevated white blood cell count, unspecified; R06.2 Wheezing; R05 Cough; R82.90 Unspecified abnormal findings in urine; Z79.01 Long term (current) use of anticoagulants; Z87.891 Personal history of nicotine dependence; Z88.0 Allergy status to penicillin; Z88.2 Allergy status to sulfonamides
CPT/HCPCS: 71045; 80048; 80053; 80061; 81001; 82550; 82607; 82746; 83880; 84425; 84443; 84484; 85025; 87040; 87077; 87086; 87186; 93005; 93306; 94618; 94640; 94664; 96365; 96366; 96375; J7644